=== PATIENT | female | born 2005 | race Two or more races ===

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

== ENCOUNTER 2023-12-05 04:46 | Emergency (ER) | payer MEDICAID ==
[~2023-12-05] VITALS: Ht 149.9 cm; Wt 52.3 kg
[~2023-12-05 04:46] MED LIST changes: -ACET-3685 PO; -BUDE0.5A6 IH; +CEPH-558 PO; -D ME PO; +SERT-439 PO
[2023-12-05] MEDS ORDERED: IOHEXOL 350 MG/ML 100 ML VIAL ONE (06:29)
[2023-12-05] MEDS ORDERED: SODIUM CHLORIDE 0.9% 100 ML ONE (06:29)
[2023-12-05] MEDS ORDERED: ACETAMINOPHEN 325 MG TABLET PO ONE (06:30)
[2023-12-05] MEDS ORDERED: SODIUM CHLORIDE 0.9% 1,000 ML IV ONE (06:30)
[2023-12-05 07:06] VITALS: TEMP 98.2
[2023-12-05 07:34] LABS: BASOPHILS % (AUTO) 1.4 % (0.0-2.0); EOSINOPHILS % (AUTO) 6.5 % (1.0-6.0); HEMATOCRIT 32.3 % (36-46); HEMOGLOBIN 9.9 g/dL (12.0-16.0); LYMPHOCYTES # (AUTO) 1.9 K/uL (1.0-4.8); LYMPHOCYTES % (AUTO) 32.8 % (22.0-44.0); MEAN CORPUSCULAR HEMOGLOBIN 19.6 pg (26.0-34.0); MEAN CORPUSCULAR HGB CONC 30.6 G/dL (31.0-37.0); MEAN CORPUSCULAR VOLUME 64 fL (80-100); MONOCYTES # (AUTO) 0.2 K/uL (0.1-1.0); MONOCYTES % (AUTO) 3.2 % (2.0-9.0); NEUTROPHILS # (AUTO) 3.2 K/uL (1.8-7.7); NEUTROPHILS % (AUTO) 56.1 % (40.0-70.0); PLATELET COUNT (AUTO) 425 K/uL (150-450); RED BLOOD CELL COUNT(AUTO) 5.06 MIL/uL (4.00-5.20); RED CELL DISTRIBUTION WIDTH 19.4 % (11.5-14.5); WHITE BLOOD COUNT (AUTO) 5.7 K/uL (4.5-11.0)
[2023-12-05 07:48] LABS: ANION GAP 13 mmol/L (8-16); CALCIUM, TOTAL 8.8 mg/dL (8.8-10.5); CARBON DIOXIDE 24 mmol/L (22-29); CHLORIDE 104 mmol/L (98-107); CREATININE 0.54 mg/dL (0.60-1.30); GLOMERULAR FILTR. RATE CALC > 60 mL/min (>60); GLUCOSE,RANDOM 104 mg/dL (70-110); POTASSIUM 4.1 mmol/L (3.5-5.1); SODIUM SERUM 141 mmol/L (136-145); UREA NITROGEN, BLOOD 9 mg/dL (7-18)
[2023-12-05 07:53] VITALS: BP 102/67; PULSE 86; RESP 18
[2023-12-05 07:56] LABS: ALANINE AMINOTRANSFERASE 11 U/L (12-78); ALBUMIN 4.7 g/dL (3.4-5.0); ALKALINE PHOSPHATASE 86 U/L (46-116); ASPARTATE AMINOTRANSFERASE 19 U/L (15-37); BILIRUBIN,TOTAL 0.4 mg/dL (0.1-1.0); TOTAL PROTEIN, SERUM 8.4 g/dL (6.4-8.2)
[2023-12-05 08:02] LABS: ALCOHOL, BLOOD (SERUM) 151 mg/dL (0-10)
[2023-12-05 08:41] LABS: RBC MORPHOLOGY COMMENT ABNORMAL RBC MORPH
== END 2023-12-05 08:31 | disposition home or self-care (01) ==
LOC: EMS 04:49
DX: S01.81XA Laceration without foreign body of other part of head, initial encounter (principal); S20.211A Contusion of right front wall of thorax, initial encounter; V49.88XA Car occupant (driver) (passenger) injured in other specified transport accidents, initial encounter; Y93.89 Activity, other specified; Y92.89 Other specified places as the place of occurrence of the external cause; Y99.8 Other external cause status
CPT/HCPCS: 99285; 70450; 80053; 84703; 85025; 36415; 71260; 72125; 72129; 72132; 12013; 72128; 71250; 72131; 72193; 74160; G0480; Q9967; J7050